=== PATIENT | female | born 1980 | race Caucasian/White ===

== ENCOUNTER 2016-11-30 23:59 | Emergency (ER) | payer OTHER ==
--- NOTE | ~2016-11-30 | CT114 ---
[facility] A Service of [facility] & [facility] RADIOLOGY TEXT RESULTS PATIENT: ASHANTI FLORES LOCATION: [facility] : 82 UNIT #: [id number] AGE: [address]: Tamika Griggs APRN SEX: F ORDER DR: [id number] [facility] [address] [place], [place] [address] [id number] MR#: [id number] #: [id number] NAME: ASHANTI FLORES : 1980 SEX: F STUDY DATE/TIME: 12/01/2016 2:38 UNIT: [facility] ROOM: STUDY DESCRIPTION: CT Soft Tissue Neck W Cont Attending Physician: Tamika Griggs A.P.R.N. Ordering Physician: Tamika Griggs A.P.R.N. Primary Care Physician: [facility] MEDICAL IMAGING REPORT This report is preliminary unless electronic signature is present EXAM CT neck with contrast 12/01/2016 HISTORY 36-year-old female in the ED complaining of painful focal soft tissue swelling in the left lower neck of unknown duration. TECHNIQUE CT examination of the neck was performed with IV contrast enhancement from the skull base through the thoracic inlet with multiplanar reconstructed images. A skin marker was placed over the region of clinical concern prior to imaging. This CT examination was performed with one or more of the following radiation dose reduction techniques: automatic exposure control, adjustment of mA and/or kV according to patient size, and iterative reconstruction. FINDINGS The examination shows a small soft tissue abscess in the left lower neck laterally measuring about 1.4 x 0.7 cm axially and about 2.3 cm in length. This is positioned superficial to the sternocleidomastoid muscle adjacent to the left external jugular vein. No deep abscess is seen. Mildly enlarged lymph nodes in the left side of the neck are nonspecific but likely reactive. The remainder of the examination is negative. Salivary glands and thyroid gland are normal in size and appearance. No vascular abnormality in the neck. Limited images through the lung apices show pulmonary emphysema. IMPRESSION 1. Small soft tissue abscess in the left lower lateral neck superficial to the sternocleidomastoid muscle and adjacent to the external jugular vein measuring 1.4 x 0.7 x 2.3 cm. 2. No additional abnormality is seen elsewhere within the neck. [facility] A Service of [facility] & [facility] RADIOLOGY TEXT RESULTS PATIENT: ASHANTI FLORES LOCATION: [facility] : 82 UNIT #: [id number] AGE: [address]: Tamika Griggs APRN SEX: F ORDER DR: 3. Images through the lung apices showing significant pulmonary emphysema. Dictated by... Markus Roger M.D. THIS IS AN ELECTRONICALLY VERIFIED REPORT Markus Roger M.D. at 12/05/2016 5:01 PM PACO/amaris TD: 12/01/2016 08:15 JOB #: [id number] MEDICAL IMAGING REPORT Page 1 of 1 COPY
[~2016-11-30 23:59] MED LIST: AMOXICILLIN PO; ANSAID100 MG PO; BACTRIM DS TABL1 TA1 PO; CIPRO PO; CLEOCIN PO; DOXYCYCLINE150 MG PO; HYDROCODON-ACE1 EAC7 PO; LORTAB 5/500 TA1 TA1 PO; MACROBID100 MG PO; NO MEDICATIONS; NORCO 5/325 TAB1 TAB PO; PREDNISONE PO; PREDNISONE1 MG PO; PRENATAL1 TA1 PO; VISTARIL PO; ZITHROMAX PO
[2016-12-01 01:23] LABS: BASOPHIL# 0.1 X10e3 (0-0.3); BASOPHIL% 1.2 % (0-2.5); EOSINOPHIL# 0.4 X10e3 (0-0.7); EOSINOPHIL% 3.8 % (0.0-7.0); HEMATOCRIT 43.4 % (35.0-45.0); HEMOGLOBIN 14.5 gm/dL (12.0-16.0); LYMPHOCYTE# 3.6 X10e3 (1.0-3.5); LYMPHOCYTE% 31.1 % (17.0-45.0); MEAN CELL VOLUME 88.7 FL (83-96); MEAN CORPUSCULAR HEMOGLOBIN 29.6 PG (28-34); MEAN CORPUSCULAR HGB CONC 33.4 g/dL (30-36); MEAN PLATELET VOLUME 6.9 FL (6.5-11.5); MONOCYTE# 0.7 X10e3 (0-1.0); MONOCYTE% 5.8 % (3.0-12.0); NEUTROPHIL# 6.7 X10e3 (1.5-7.1); NEUTROPHIL% 58.1 % (40-75); PLATELET COUNT 293 X10e3 (140-420); RED BLOOD COUNT 4.89 X10e (3.90-5.30); RED CELL DISTRIBUTION WIDTH 13.5 % (11.0-15.5); WHITE BLOOD COUNT 11.6 X10e3 (4.0-10.5)
[2016-12-01 01:24] LABS: DIFF IND NO
[2016-12-01 01:53] LABS: BUN/CREATININE RATIO 27.5; CALCIUM SERUM 8.9 mg/dL (8.4-10.2); CREATININE SERUM 0.4 mg/dL (0.6-1.4); DILANTIN (PHENYTOIN) 3.4 ug/mL (10.0-20.0); POTASSIUM 3.7 mmol/L (3.5-5.1)
[2016-12-01 02:21] LABS: INFLUENZA A NEG (NEG); INFLUENZA B NEG (NEG)
== END 2016-12-01 08:00 | disposition home or self-care (01) ==
LOC: CED 23:59
PROVIDERS: Nurse Practitioner
DX: L02.11 Cutaneous abscess of neck (principal); F17.210 Nicotine dependence, cigarettes, uncomplicated; Z88.0 Allergy status to penicillin; Z88.2 Allergy status to sulfonamides
CPT/HCPCS: 10060; 70491; 80048; 80185; 85025; 86308; 87651; 87804; 96361; 96365; 96375; 99284; J1200; J1885; Q9967